=== PATIENT | female | born 1950 | race Two or more races ===

== ENCOUNTER 2024-07-30 14:18 | Emergency (ER) | payer OTHER, MEDICAID ==
[~2024-07-30] VITALS: Ht 154.9 cm; Wt 54.4 kg
[2024-07-30 15:16] VITALS: BP 148/81; TEMP 98.6
[2024-07-30] MEDS ORDERED: CARB15DR12 EACH EAR (15:26)
[2024-07-30] MEDS ORDERED: OSEL75CA PO (15:26)
[2024-07-30 15:34] VITALS: O2SAT 97
== END 2024-07-30 15:36 | disposition home or self-care (01) ==
LOC: ER 14:27
DX: B34.9 Viral infection, unspecified (principal); H61.23 Impacted cerumen, bilateral; J34.89 Other specified disorders of nose and nasal sinuses; R05.9 Cough, unspecified